=== PATIENT | male | born 2000 | race American Indian/Alaskan Native ===

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

== ENCOUNTER 2020-05-31 10:13 | Emergency (ER) | payer OTHER ==
[2020-05-31 10:28] VITALS: BP 134/59; PULSE 68; TEMP 98.7; BMI 25.1
[2020-05-31] MEDS ORDERED: ONDANSETRON 4 MG/2 ML VIAL IVPUSH ONE (10:54)
--- NOTE | 2020-05-31 11:17 | PDOC ---
History of Present Illness - General Chief Complaint: Pain Stated Complaint: VOMITING/NAUSEA/ABD PAIN Time Seen by Provider: 05/31/20 10:38 History Source: Patient Exam Limitations: No Limitations - History of Present Illness Initial Comments: 05/31/20 11:21 19-year-old male denies past medical history presents complaining of midsternal chest throbbing with nausea since 4 AM today. Patient states he was outside with his friends all night smoking marijuana and was well until 4 AM. Denies alcohol or other drug use. Denies vomiting, fever, chills, shortness of breath, back pain, diarrhea, urinary complaints, known sick contacts or other complaints. Patient has been able to tolerate vitamin water. Denies taking any medication. ROS: as above PE: GENERAL: well-appearing, NAD HEAD: NCAT EYES: Pupils equal, round and reactive to light, sclera anicteric, conjunctiva clear ENT: pharynx: no erythema, no exudate, uvula midline NECK: supple, no lymphadenopathy CHEST: nontender RESP: clear, no w/r/r CARDIO: rrr, no m/g/r ABD: +BS, soft, nontender, non distended BACK: no midline spinal ttp, no CVAT EXTREMITIES: Normal range of motion, no edema NEUROLOGICAL: Normal speech, normal gait SKIN: Warm, Dry Is this a multiple visit Asthma Patient?: No Past History - Medical History Allergies/Adverse Reactions: Allergies Allergy/AdvReac Type Severity Reaction Status Date / Time No Known Allergies Allergy Verified 05/31/20 10:28 Home Medications: Ambulatory Orders Naproxen [Naprosyn -] 500 mg PO BID PRN #14 tablet 12/01/16 COPD: No - Immunization History Immunization Up to Date: Yes - Psycho-Social/Smoking History Smoking Status: No Smoking History: Never smoked Have you smoked in the past 12 months: No Number of Cigarettes Smoked Daily: 0 Information on smoking cessation initiated: No - Substance Abuse Hx (Audit-C & DAST Scrn) How often the patient has a drink containing alcohol: Monthly or less Number of drinks the patient has on a typical day: 1 or 2 How often the patient has six or more drinks on one occasion: Never Score: In Men: 4 or > Positive; In Women: 3 or > Positive: 1 Screen Result (Pos requires Nsg. Audit-10AR): Negative In the last yr the pt used illegal drug/Rx for NonMed reason: Yes Score: Yes response is considered Positive: 1 Screen Result (Positive result requires Nsg. DAST-10): Positive *Physical Exam - Vital Signs Last Vital Signs Temp Pulse Resp BP Pulse Ox 98.7 F 68 17 134/59 L 100 05/31/20 10:25 05/31/20 10:25 05/31/20 10:25 05/31/20 10:25 05/31/20 10:25 ED Treatment Course - LABORATORY CBC & Chemistry Diagram: 05/31/20 11:30 05/31/20 11:30 - RADIOLOGY Radiology Studies Ordered: Category Date Time Status CHEST PA & LAT [RAD] Stat Radiology 05/31/20 10:53 Ordered ABDOMEN US -LIMITED [US] Stat Ultrasound 05/31/20 10:53 Ordered Medical Decision Making - Medical Decision Making 05/31/20 11:23 19-year-old male denies past medical history presents complaining of midsternal chest throbbing with nausea since 4 AM today. Patient states he was outside with his friends all night smoking marijuana and was well until 4 AM. Denies alcohol or other drug use. Denies vomiting, fever, chills, shortness of breath, back pain, diarrhea, urinary complaints, known sick contacts or other complaints. Patient has been able to tolerate vitamin water. Denies taking any medication. cbc, cmp IVF IV Zofran Abdominal ultrasound reassess 05/31/20 13:50 ecg: HR 73, nsr, RBBB cxr: Unremarkable on my wet read wbc 12.9 otherwise normal Troponin pending Abdominal ultrasound completed delayed results given system is down Patient states he feels better after IV fluids and Zofran Does not wish to wait for troponin or ultrasound results Agrees to leave AGAINST MEDICAL ADVICE Discharge - Discharge Information Problems reviewed: Yes Clinical Impression/Diagnosis: Chest pain Qualifiers: Chest pain type: unspecified Qualified Code(s): R07.9 - Chest pain, unspecified Condition: Stable Disposition: AGAINST MEDICAL ADVICE - Admission No - Follow up/Referral Referrals: Chau Ramon MD [Primary Care Provider] - - Patient Discharge Instructions - Post Discharge Activity
[2020-05-31] MEDS ORDERED: SODIUM CHLORIDE 0.9% 500 ML INFUS.BAG IV ONE (11:25)
[2020-05-31 11:54] LABS: BASO % 0.3 % (0-2.0); EOS % 0.1 % (0-4.5); HEMOGLOBIN 16.1 GM/dL (11.7-16.9); LYMPH % 16.9 % (8-40); MCH 29.6 pg (25.7-33.7); MCHC 33.6 g/dl (32.0-35.9); MEAN CELL VOLUME 88.1 fl (80-96); MEAN PLT VOLUME 8.5 fl (7.5-11.1); MONO % 8.6 % (3.8-10.2); NEUT % 74.1 % (42.8-82.8); PLATELET COUNT 173 K/MM3 (134-434); RBC 5.44 M/mm3 (4.00-5.60); RDW 12.9 % (11.9-15.9); WHITE BLOOD COUNT 12.9 K/mm3 (4.0-10.0)
[2020-05-31 12:33] LABS: ALBUMIN 4.7 g/dl (3.4-5.0); ALK PHOS 54 U/L (45-117); ANION GAP 9 MMOL/L (8-16); BILIRUBIN,TOTAL 1.5 mg/dL (0.2-1); BLOOD UREA NITROGEN 12.4 mg/dL (7-18); CALCIUM 9.5 mg/dL (8.5-10.1); CHLORIDE 105 mmol/L (98-107); CO2 25 mmol/L (21-32); CREATININE 1.1 mg/dL (0.55-1.3); GLUCOSE,RANDOM 96 mg/dL (74-106); LIPASE 93 U/L (73-393); POTASSIUM 3.9 mmol/L (3.5-5.1); SGOT/AST 16 U/L (15-37); SGPT/ALT 43 U/L (13-61); SODIUM 139 mmol/L (136-145); TOT PROT 8.3 g/dl (6.4-8.2)
[2020-05-31 13:16] LABS: URINE APPEARANCE CLEAR; URINE BILIRUBIN NEGATIVE (NEGATIVE); URINE COLOR DK YELLOW; URINE GLUCOSE (UA) NEGATIVE (NEGATIVE); URINE KETONE TRACE (NEGATIVE); URINE LEUK ESTERASE NEGATIVE (NEGATIVE); URINE NITRITE NEGATIVE (NEGATIVE); URINE PROTEIN TRACE (NEGATIVE)
--- NOTE | 2020-06-01 14:51 | EKG ---
Test Reason : Blood Pressure : / mmHG Vent. Rate : 073 BPM Atrial Rate : 073 BPM P-R Int : 132 ms QRS Dur : 114 ms QT Int : 382 ms P-R-T Axes : 031 038 041 degrees QTc Int : 420 ms NORMAL SINUS RHYTHM INCOMPLETE RIGHT BUNDLE BRANCH BLOCK BORDERLINE ECG NO PREVIOUS ECGS AVAILABLE Confirmed by JUAN MEJIAS MD ([id number]) on 06/01/2020 2:51:33 PM Referred By: Confirmed By:JUAN MEJIAS MD
== END 2020-05-31 13:50 | disposition left against medical advice (07) ==
LOC: JER 10:13
PROC: 3E033GC Introduction of Other Therapeutic Substance into Peripheral Vein, Percutaneous Approach (ICD-10-PCS; principal; 2020-05-31)
DX: R07.9 Chest pain, unspecified (principal)
CPT/HCPCS: 36415; 71046-TC-FY; 76705-TC; 80053; 81003; 83690; 84484; 85025; 87086; 93005; 93010; 99285-25

== ENCOUNTER 2020-06-09 00:14 | Emergency (ER) | payer OTHER ==
[2020-06-09 00:21] VITALS: BP 106/79; PULSE 81; TEMP 98.1; BMI 25.1
[2020-06-09] MEDS ORDERED: LIDOCAINE 2.5%/PRILOCAINE 2.5% (5 Gram/TUBE) TP ONE (00:24)
[2020-06-09] MEDS ORDERED: LIDOCAINE 2.5%/PRILOCAINE 2.5% 30 GRAM TUBE TP STA (00:24)
[2020-06-09] MEDS ORDERED: KETOROLAC TROMETHAMINE 30 MG/1 ML VIAL IM ONE (00:28)
[2020-06-09] MEDS ORDERED: KETOROLAC TROMETHAMINE 30 MG/1 ML VIAL ONE (00:30)
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
== END 2020-06-09 01:21 | disposition home or self-care (01) ==
LOC: FER 00:14
PROC: 3E0333Z Introduction of Anti-inflammatory into Peripheral Vein, Percutaneous Approach (ICD-10-PCS; principal; 2020-06-09)
DX: S50.311A Abrasion of right elbow, initial encounter (principal); S80.211A Abrasion, right knee, initial encounter; S60.511A Abrasion of right hand, initial encounter; S60.512A Abrasion of left hand, initial encounter
CPT/HCPCS: 73110-TC-LT-FY; 73110-TC-RT-FY; 73130-TC-LT-FY; 73130-TC-RT-FY; 99284-25

== ENCOUNTER 2021-07-21 09:05 | Emergency (ER) | payer OTHER ==
[2021-07-21 09:20] VITALS: BP 120/74; PULSE 74; TEMP 99; BMI 26.1
[2021-07-21] MEDS ORDERED: CARBAMIDE PEROXIDE 6.5% OTIC 15 ML BOTTLE AS ONE (09:29)
[2021-07-21] MEDS ORDERED: CARBAMIDE PEROXIDE 6.5% OTIC 15 ML BOTTLE ONE (09:33)
[2021-07-21] MEDS ORDERED: CARBAMIDE PEROXIDE 6.5% OTIC 15 ML BOTTLE AD ONE (09:33)
== END 2021-07-21 11:00 | disposition home or self-care (01) ==
LOC: FER 09:05
DX: H61.23 Impacted cerumen, bilateral (principal)
CPT/HCPCS: 99283-25

== ENCOUNTER 2022-03-25 06:56 | Emergency (ER) | payer OTHER ==
[2022-03-25 07:08] VITALS: BP 133/86; PULSE 76; TEMP 98.4; BMI 25.5
[2022-03-25] MEDS ORDERED: ONDANSETRON *ODT* 4 MG TABLET SL ONE (07:10)
[2022-03-25] MEDS ORDERED: DIPHTH,PERTUSS(ACELL),TET 0.5 ML DISP.SYRIN IM ONE ×2 (07:10→07:11)
[2022-03-25] MEDS ORDERED: ONDANSETRON *ODT* 4 MG TABLET ONE (07:10)
[2022-03-25] MEDS ORDERED: LIDOCAINE HCL 2% (50ML VIAL) INF ONE (07:52)
[2022-03-25] MEDS ORDERED: LIDOCAINE HCL 2% (20ML MULTI-DOSE VIAL) ONE (07:55)
== END 2022-03-25 09:08 | disposition home or self-care (01) ==
LOC: FER 06:56
PROC: 0HQ1XZZ Repair Face Skin, External Approach (ICD-10-PCS; principal; 2022-03-25)
PROC: 3E0234Z Introduction of Serum, Toxoid and Vaccine into Muscle, Percutaneous Approach (ICD-10-PCS; 2022-03-25)
DX: S01.85XA Open bite of other part of head, initial encounter (principal); W54.0XXA Bitten by dog, initial encounter
CPT/HCPCS: 12011-25; 90471; 90715; 99283-25; Q0162

== ENCOUNTER 2022-04-02 15:29 | Emergency (ER) | payer OTHER ==
[2022-04-02 15:41] VITALS: BP 119/62; PULSE 64; TEMP 98.6; BMI 25.5
== END 2022-04-02 16:08 | disposition home or self-care (01) ==
LOC: FER 15:29
DX: S01.81XA Laceration without foreign body of other part of head, initial encounter (principal); W54.0XXA Bitten by dog, initial encounter; Z48.02 Encounter for removal of sutures
CPT/HCPCS: 99281-25

== ENCOUNTER 2023-05-21 19:12 | Emergency (ER) | payer OTHER ==
[2023-05-21 19:18] VITALS: BP 130/54; PULSE 85; RESP 20; TEMP 102.5; BMI 26.2
[2023-05-21] MEDS ORDERED: ONDANSETRON *ODT* 4 MG TABLET SL ONE ×2 (19:19→23:08)
[2023-05-21] MEDS ORDERED: ACETAMINOPHEN 500 MG TABLET (FP) ONE (19:35)
[2023-05-21] MEDS ORDERED: ONDANSETRON *ODT* 4 MG TABLET ONE ×2 (19:35→23:09)
[2023-05-21] MEDS ORDERED: ACETAMINOPHEN 500 MG TABLET (FP) PO ONE (19:52)
[2023-05-21 20:16] LABS: HEMOGLOBIN 16.1 G/dL (11.7-16.9); MCH 30.6 pg (25.7-33.7); MCHC 34.1 g/dl (32.0-35.9); MEAN CELL VOLUME 89.5 fl (80-96); MEAN PLT VOLUME 8.6 fl (7.5-11.1); PLATELET COUNT 149.8 10^3/uL (134-434); RBC 5.25 10^6/uL (4.00-5.60); RDW 13.4 % (11.9-15.9); WHITE BLOOD COUNT 8.2 10^3/uL (4.0-10.8)
[2023-05-21 20:31] LABS: ALBUMIN 4.5 g/dl (3.4-5.0); BILIRUBIN,TOTAL 1.1 mg/dl (0.2-1); BLOOD UREA NITROGEN 13.9 mg/dl (7-18); CALCIUM 9.3 mg/dl (8.5-10.1); CREATININE 1.2 mg/dl (0.6-1.3); POTASSIUM 3.6 mmol/L (3.5-5.1); SGOT/AST 21.9 U/L (15-37); SGPT/ALT 31.9 U/L (7-52); TOT PROT 7.1 g/dl (6.4-8.2)
[2023-05-21 20:32] LABS: PLATELET ESTIMATE ADEQUATE
== END 2023-05-21 23:10 | disposition home or self-care (01) ==
LOC: FER 19:12
DX: R11.2 Nausea with vomiting, unspecified (principal); R19.7 Diarrhea, unspecified; R50.9 Fever, unspecified
CPT/HCPCS: 36415; 80053; 81003; 81015; 83690; 85025; 87077; 87086; 99283-25; Q0162

== ENCOUNTER 2024-08-28 11:06 | Emergency (ER) | payer OTHER ==
[2024-08-28 11:25] VITALS: BP 124/64; PULSE 73; RESP 18; TEMP 98.4; BMI 26.9
[2024-08-28 12:18] LABS: HEMATOCRIT 52.6 % (35.4-49); HEMOGLOBIN 17.8 G/dL (11.7-16.9); MCH 30.4 pg (25.7-33.7); MCHC 33.9 g/dl (32.0-35.9); MEAN CELL VOLUME 89.6 fl (80-96); MEAN PLT VOLUME 8.6 fl (7.5-11.1); RBC 5.87 10^6/uL (4.00-5.60); RDW 13.8 % (11.9-15.9)
[2024-08-28 12:26] LABS: ALBUMIN 5.1 g/dl (3.4-5.0); BILIRUBIN,TOTAL 1.7 mg/dl (0.2-1); POTASSIUM 3.8 mmol/L (3.5-5.1)
[2024-08-28 12:35] LABS: PLATELET ESTIMATE ADEQUATE
== END 2024-08-28 13:40 | disposition home or self-care (01) ==
LOC: FER 11:06
DX: R05.9 Cough, unspecified (principal); R09.3 Abnormal sputum; Z20.822 Contact with and (suspected) exposure to COVID-19
CPT/HCPCS: 0241U-QW; 36415; 71046-TC-FY; 80053; 85027; 85379; 99284-25